=== PATIENT | female | born 1990 | race Hispanic/Latino ===

== ENCOUNTER → 2017-11-28 | Day surgery (SDC) | payer OTHER ==
[~2017-11-28] MED LIST: BACITRACIN ZINC 15 GM OINT ONE; BUPIVACAINE HCL 0.5% INJ 30 ML VIAL INJ ONE; CEFAZOLIN SOD 1 GM VIAL ONE; DEXAMETHASONE SOD PHOS INJ 4 MG/ML VIAL ONE; FENTANYL CITRATE/PF 100MCG/2 ML INJ ONE; KETOROLAC TROMETHAMINE 30 MG/ML VIAL ONE; LIDOCAINE HCL 2% LOCAL INJ 5 ML SDV VIAL INJ ONE; MIDAZOLAM HCL 2 MG/2 ML VIAL ONE; MORPHINE SULFATE 2 MG/ML SYR ONE; ONDANSETRON HCL INJ 2 MG/ML VIAL ONE; PRENATAL TABLE1 EAC1 PO; PROPOFOL IV EMULSION 10 MG/ML 20 ML VIAL ONE; SEVOFLURANE INHAL SOLN 250 ML PEN BTL ONE; TYLENOL WITH C1 EACH PO
--- NOTE | 2017-11-28 08:59 | Operative Report ---
DATE OF PROCEDURE: November 28, 2017 MACHINE STUFFER AUTOMATIC: Kalen Damon PA-C The patient was brought to the operating room for induction of anesthesia. Throughout this case, my PA's assistance was necessary for retraction of soft tissue and positioning of the extremity. This allows for efficient and technically successful execution of the operation and is considered medically necessary. PREOPERATIVE DIAGNOSIS: Left ankle fracture of lateral malleolus. POSTOPERATIVE DIAGNOSIS: Left ankle fracture of lateral malleolus. PROCEDURE: Open reduction internal fixation of left ankle. INDICATIONS: The patient is a 27-year-old lady who sustained a displaced fracture of her left distal fibula. The findings and options have been discussed with the patient and her . We plan on open reduction with internal fixation. The risks and benefits have been discussed. She states she understands and wishes to proceed. DESCRIPTION OF PROCEDURE: The patient was brought to the operating room and placed under general anesthetic. Her left lower extremity was prepped and draped in a sterile manner. She received prophylactic antibiotics in the holding area. A preoperative time out was performed. The extremity was exsanguinated and a proximal tourniquet was inflated to 300 mmHg. An incision was made over the distal fibula. The fracture site was carefully exposed. A lobster claw reduction clamp was used to perform an anatomic reduction. Prior to reduction, there was approximately 4 mm to 5 mm of displacement and posterior rotation. The lag screw was placed from anterior to posterior. This was 20 mm in length. A 6-hole, one-third semi-tubular plate was then contoured to the distal fibula. This was locked proximally with cortical screws and distally with cancellous screws. The distal 2 screws were locking screws. Intraoperative x-rays confirmed anatomic reduction of the fracture and good positioning of the hardware. The wound was irrigated. Approximately, 8 mL of 0.5% Marcaine without epinephrine were injected around the incision. The incision was carefully closed with subcuticular Vicryl and nylon stitches. A sterile bandage and a well-padded splint were applied. The patient was extubated and transported to the recovery room in stable condition. There was no blood loss. All needle and sponge counts were correct. Job#: [id number]
== END | disposition home or self-care (01) ==
LOC: OR 05:32
PROVIDERS: ATTEND Specialist
DX: S82.62XA Displaced fracture of lateral malleolus of left fibula, initial encounter for closed fracture (principal); X58.XXXA Exposure to other specified factors, initial encounter; Y93.01 Activity, walking, marching and hiking; Y92.89 Other specified places as the place of occurrence of the external cause; Z01.812 Encounter for preprocedural laboratory examination
CPT/HCPCS: 27792; 36415; 76000; 81025; 84702; C1713 ×5; J0690; J1100; J1885; J2001; J2250; J2270; J2405